=== PATIENT | female | born 1955 | race Caucasian/White ===

== ENCOUNTER 2017-01-27 16:57 | Inpatient (IN) | payer MEDICAID, OTHER ==
[~2017-01-27] VITALS: Ht 160 cm; Wt 63.5 kg
--- NOTE | 2017-01-27 17:48 | NUR ---
PT BIB AMBULANCE, MED RESPONSE, WITHOUT ANY MEDICAL RECORDS, NO MED LIST ,ONLY FACESHEET WITH LIMITTED INFO. ATTEMPTED TO CALL [facility] BUT NO ANSWER . [phone].
[2017-01-27 19:31] LABS: BASOPHILS # (AUTO) 0.1 K/uL (0.0-8.0); BASOPHILS % (AUTO) 1.3 % (0.0-2.0); EOSINOPHILS # (AUTO) 0.2 K/uL (0.0-0.7); EOSINOPHILS % (AUTO) 1.8 % (0.0-7.0); HEMATOCRIT 38.4 % (31.2-41.9); HEMOGLOBIN 13.4 g/dL (10.9-14.3); LYMPHOCYTES # (AUTO) 3.1 K/uL (20.0-40.0); LYMPHOCYTES % (AUTO) 33.9 % (20.5-51.5); MEAN CORPUSCULAR HEMOGLOBIN 34.8 uug (24.7-32.8); MEAN CORPUSCULAR HGB CONC 35 g/dL (32.3-35.6); MEAN CORPUSCULAR VOLUME 99.9 fL (75.5-95.3); MONOCYTES # (AUTO) 0.8 K/uL (2.0-10.0); MONOCYTES % (AUTO) 8.3 % (0.0-11.0); NEUTROPHILS % (AUTO) 54.7 % (38.5-71.5); PLATELET COUNT (AUTO) 338 K/uL (179-408); RED BLOOD CELL COUNT(AUTO) 3.84 MIL/uL (3.63-4.92); WHITE BLOOD COUNT (AUTO) 9.2 K/uL (3.8-11.8)
[2017-01-27 19:49] LABS: CREATININE 0.7 mg/dL (0.6-1.3)
[2017-01-27 20:01] LABS: BILIRUBIN,DIRECT 0.2 mg/dL (0.0-0.2); BILIRUBIN,TOTAL 0.4 mg/dL (0.2-1.0); TOTAL PROTEIN, SERUM 7.5 g/dL (6.4-8.2)
[2017-01-27] MEDS ORDERED: LEVOFLOXACIN 750MG/D5W 150 ML IV ONE ×2 (20:15→20:54)
[2017-01-27] MEDS ORDERED: IV NORMAL SALINE 1000 ML BAG IV ONE (20:15)
[2017-01-27] MEDS ORDERED: PIPERACILLIN SODIUM/TAZOBACTAM 3.375 G in IV DEXTROSE 5% 50 ML IV ONE (20:15)
[2017-01-27 20:25] LABS: ABG BASE EXCESS -0.8 mmol/L; ABG HCO3 21.5 mmol/L; ABG PCO2 28.5 mmHg (35.0-45.0); ABG PH 7.495 (7.350-7.450); ABG PO2 89.2 mmHg (75.0-100.0); ABG SITE LEFT BRACHIAL; ABG TOTAL HEMOGLOBIN 12.1 G/dL (12.0-16.0); COHb 1.2 % (0.5-1.5); MetHb 0.6 % (0.0-1.5); O2Hb 95.1 % (94.0-97.0); VENT MODE ROOM AIR
[2017-01-27] MEDS ORDERED: PIPERACILLIN/TAZOBACTAM/D5W 50 ML IV ONE (20:30)
--- NOTE | 2017-01-27 21:45 | NUR ---
Pt. admitted to TELE, under care of Teresa Sahu [place] List completed
[2017-01-27 22:10] VITALS: BP 141/54
[2017-01-27] MEDS ORDERED: MAGNESIUM HYDROXIDE 30 ML LIQUID UDC PO PRN (22:30)
[2017-01-27] MEDS ORDERED: ACETAMINOPHEN 325 MG TABLET PO PRN (22:30)
[2017-01-27] MEDS ORDERED: ZOLPIDEM 5 MG TABLET PO PRN (22:30)
[2017-01-27] MEDS ORDERED: HYDROCODONE/APAP 5-325MG TABLET PO PRN (22:30)
[2017-01-27] MEDS ORDERED: ONDANSETRON 4 MG/2 ML VIAL IV PRN (22:30)
[2017-01-27] MEDS: IV NS 1000 ML 1,000 ML IV PRN (23:57)
[2017-01-28] VITALS: BP 133/65
[2017-01-28 04:00] VITALS: BP 158/74
[2017-01-28 06:30] LABS: BASOPHILS # (AUTO) 0.1 K/uL (0.0-8.0); BASOPHILS % (AUTO) 0.8 % (0.0-2.0); EOSINOPHILS # (AUTO) 0.1 K/uL (0.0-0.7); EOSINOPHILS % (AUTO) 1.3 % (0.0-7.0); HEMATOCRIT 36.6 % (31.2-41.9); HEMOGLOBIN 12.8 g/dL (10.9-14.3); LYMPHOCYTES # (AUTO) 1.8 K/uL (20.0-40.0); LYMPHOCYTES % (AUTO) 26.9 % (20.5-51.5); MEAN CORPUSCULAR HGB CONC 35 g/dL (32.3-35.6); MEAN CORPUSCULAR VOLUME 100.3 fL (75.5-95.3); MONOCYTES # (AUTO) 0.4 K/uL (2.0-10.0); NEUTROPHILS # (AUTO) 4.4 K/uL (1.8-8.9); PLATELET COUNT (AUTO) 276 K/uL (179-408); RED BLOOD CELL COUNT(AUTO) 3.65 MIL/uL (3.63-4.92); WHITE BLOOD COUNT (AUTO) 6.7 K/uL (3.8-11.8)
[2017-01-28 07:03] LABS: CREATININE 0.6 mg/dL (0.6-1.3); MAGNESIUM 1.9 mg/dL (1.8-2.4); PHOSPHOROUS 3.2 mg/dL (2.5-4.9); POTASSIUM 4.7 mmol/L (3.5-5.1)
--- NOTE | 2017-01-28 07:30 | NUR ---
pt received in bed awake soaking wet in urine and bm ,call light with in reach,pt is axox3,
[2017-01-28] MEDS: IV NS 1000 ML 1,000 ML IV PRN (10:26)
[2017-01-28 11:09] VITALS: BP 116/56
[2017-01-28 15:14] VITALS: BP 114/48
[2017-01-28 19:46] VITALS: BP 105/45
--- NOTE | 2017-01-28 20:00 | NUR ---
RECEIVED PATIENT AWAKE IN BED WITH FAMILY AT BEDSIDE. PATIENT IS A/O X3. DENIES PAIN OR DISCOMFORT. NO RESP. DISTRESS NOTED. VSS. H/L INTACT AND PATENT. BED ALARM ON. CALL LIGHT IN REACH. ALL NEEDS ATTENDED. WILL CONTINUE TO MONITOR.
[2017-01-28] MEDS: MIRTAZAPINE 15 MG TABLET PO SCH (21:01)
[2017-01-29 06:20] VITALS: BP 133/68
--- NOTE | 2017-01-29 06:39 | NUR ---
PATIENT AWAKE IN BED. SLEPT WELL THROUGHOUT THE NIGHT. VSS. DENIES PAIN OR DISCOMFORT. CALL LIGHT IN REACH. ALL NEEDS ATTENDED, WILL CONTINUE TO MONITOR AND ASSESS.
--- NOTE | 2017-01-29 07:40 | NUR ---
RECEIVED PATIENT AWAKE IN BED PATIENT IS A/O X3. DENIES PAIN OR DISCOMFORT. NO RESP. DISTRESS NOTED. VSS. H/L INTACT AND PATENT. BED ALARM ON. CALL LIGHT IN REACH. ALL NEEDS ATTENDED. WILL CONTINUE TO MONITOR.
[2017-01-29 11:14] VITALS: BP 101/51
[2017-01-29 15:14] VITALS: BP 105/60
--- NOTE | 2017-01-29 17:20 | NUR ---
PATIENT AWAKE IN BED. VSS. DENIES PAIN OR DISCOMFORT. CALL LIGHT IN REACH. ALL NEEDS ATTENDED, WILL CONTINUE TO MONITOR AND ASSESS.
[2017-01-29 20:00] VITALS: BP 112/51
--- NOTE | 2017-01-29 20:00 | NUR ---
RECEIVED PATIENT AWAKE IN BED. PATIENT IS A/O X3. DENIES PAIN OR DISCOMFORT. NO RESP. DISTRESS NOTED. VSS. H/L INTACT AND PATENT. BED ALARM ON. CALL LIGHT IN REACH. ALL NEEDS ATTENDED. WILL CONTINUE TO MONITOR.
[2017-01-29] MEDS: MIRTAZAPINE 15 MG TABLET PO SCH (20:45)
[2017-01-30 06:27] VITALS: BP 141/53
[2017-01-30 12:16] VITALS: BP 98/54
[2017-01-30 20:00] VITALS: BP 101/52
[2017-01-30] MEDS: MIRTAZAPINE 15 MG TABLET PO SCH (20:30)
--- NOTE | 2017-01-31 06:00 | NUR ---
Pt slept well, in no acute distress. VS stable, pt is afebrile, no c/o of pain, sob. All needs met, bed alarm on. Will continue to monitor.
[2017-01-31 06:26] VITALS: BP 115/51
[2017-01-31 10:44] VITALS: BP 117/52
[2017-01-31 11:12] VITALS: BP 117/56
--- NOTE | 2017-01-31 12:26 | NUR ---
ASSUMED RATE OF THIS PATIENT FROM THE OUT GOING NURSE PATIENT IS ALERT ORIENTED AND VERBALLY RESPONSIVE AT THIS TIME ON ROOM AIR WITH NO SHORTNESS OF BREATH RIGHT FOREARM HEPLOCK REMAINS INTACT WITH NO S/S OF INFILTERATION AT THIS TIME WILL CONTINUE TO OBSERVE.
--- NOTE | 2017-01-31 14:25 | NUR ---
RESTING WITH NO S/S OF RESPIRATORY DISTRESS AT THIS TIME
[2017-01-31 15:52] VITALS: BP 106/55
--- NOTE | 2017-01-31 18:14 | NUR ---
PATIENT IS ABLE TO AMBULATE HAND HELD NEEDING REDIRECTION MADE COMFORTABLE NOT IN DISTRESS AT THIS TIME.
[2017-01-31 20:50] VITALS: BP 109/43
[2017-01-31] MEDS: MIRTAZAPINE 15 MG TABLET PO SCH (21:02)
[2017-02-01 04:29] VITALS: BP 135/50
--- NOTE | 2017-02-01 06:00 | NUR ---
Pt slept well, no distress. No significant change of condition throughout the shift. All needs met. Will continue to monitor.
--- NOTE | 2017-02-01 08:00 | NUR ---
RECEIVED PATIENT IN BED AWAKE ALERT TO SELF COOPERATIVE WITH CONFUSSION AND DISORIENTATION ALL NEEDS ANTICIPATED AND SATISFIED.TOTALLY DEPENDENT ON NURSES FOR ALL ADL.BREAKFAST SERVED AND PATIENT IS TOLERATING WELL FEEDING SELF MADE COMFORTABLE WILL CONTINUE TO OBSERVE.
--- NOTE | 2017-02-01 10:30 | NUR ---
PATIENT SEEN AND EXAMINED BY DR JOSHI WITH ORDER TO DISCHARGE PATIENT BACK TO THE SNF AND NOTED.THE WORKING MANAGER STATED THAT THE [facility] IS UNABLE TO ACCEPT PATIENT TODAY.
[2017-02-01 11:38] VITALS: BP 97/55
[2017-02-01 16:21] VITALS: BP 108/51
--- NOTE | 2017-02-01 17:58 | NUR ---
RESTING IN BED EATING DINNER DENIES PAIN OR DISCOMFORTS NO S/S OF SHORTNESS OF BREATH AT THIS TIME
[2017-02-01] MEDS: MIRTAZAPINE 15 MG TABLET PO SCH (20:30)
[2017-02-01 20:54] VITALS: BP 92/50
[2017-02-02 04:26] VITALS: BP 117/66
--- NOTE | 2017-02-02 06:44 | NUR ---
PATIENT ASLEEP. SLEPT WELL. BED ALARM ON. CALL LIGHT IN REACH. ALL NEEDS ATTENDED.
--- NOTE | 2017-02-02 09:33 | NUR ---
AWAKE ALERT TO SELF WITH CONFUSSION AND DISORIENTATION ALL NEEDS ANTICIPATED AND SATISFIED MAX ASSIST FOR ALL ADL D/C PLANNING BACK TO THE SNF TODAY PATIENT AWARE AND STATED OKAY.
--- NOTE | 2017-02-02 11:30 | NUR ---
CALLED PETRA MARQUEZ STATED WAS PATIENTS DPOA NOTIFIED HIM THAT PATIENT WILL BE TRANSFERED BACK TO THE [facility] TODAY AND HE EXPRESSED UNDERSTANDING.
[2017-02-02 11:37] VITALS: BP 107/54
--- NOTE | 2017-02-02 12:00 | NUR ---
CALLED [facility] AND REPORT GIVEN TO ZENAIDA FOR CONTINUING CARE AWAITING FOR MED RESPONSE AMBULANCE CHECKER [facility].
[2017-02-02 15:45] VITALS: BP 117/58
--- NOTE | 2017-02-02 15:45 | NUR ---
PATIENT DISCHARGED PICKED UP BY AMBULANCE IN SATISFACTORY CONDITION WITH ALL HER PERSONAL BELONGINGS.NO SOB AT THIS TIME.
== END 2017-02-02 15:45 | DRG 816 ==
LOC: ER 17:00 → TELE 21:43 → MED 01-28 10:07
PROVIDERS: ADMIT Nurse Practitioner Acute Care; ATTEND Internal Medicine
DX: T59.811A Toxic effect of smoke, accidental (unintentional), initial encounter (principal); J96.90 Respiratory failure, unspecified, unspecified whether with hypoxia or hypercapnia; E87.2 Acidosis; F03.90 Unspecified dementia, unspecified severity, without behavioral disturbance, psychotic disturbance, mood disturbance, and anxiety; E44.1 Mild protein-calorie malnutrition; Y92.129 Unspecified place in nursing home as the place of occurrence of the external cause; J44.9 Chronic obstructive pulmonary disease, unspecified; Z87.891 Personal history of nicotine dependence; E88.09 Other disorders of plasma-protein metabolism, not elsewhere classified; R74.0 Nonspecific elevation of levels of transaminase and lactic acid dehydrogenase [LDH]; Z68.24 Body mass index [BMI] 24.0-24.9, adult; F32.9 Major depressive disorder, single episode, unspecified; F41.9 Anxiety disorder, unspecified
CPT/HCPCS: 36415; 36600; 70030-TC; 71010; 83605; 83735; 84100; 85025; 87040; 93005; A4663; J1956; J2543; J7030